=== PATIENT | male | born 1950 | race Caucasian/White ===

== ENCOUNTER 2018-04-05 09:53 | Outpatient (CLI) | payer MEDICARE ==
[2018-04-05] MEDS ORDERED: Gadobenate Dimeglumine 529 MG/1 ML (20ML VIAL) ONE (10:15)
--- NOTE | 2018-04-05 14:52 | MRI ---
MRI PELVIS WITH AND WITHOUT CONTRAST: INDICATIONS: History of prostate cancer. COMPARISON: None. CONTRAST: MultiHance 20 mL. TECHNIQUE: Multiplanar, multisequence MR images were obtained of the pelvis, with and without contrast, utilizin g prostate cancer specific protocol. The study was evaluated on a [employer] 3D work station for multiparametric evaluation. FINDINGS: The prostate is small, measuring 3.8 x 3.3 x 2.6 cm (volume 15.77 cc), with diffuse low T2 signal, web[place] [employer] for diffuse fibrosis of the prostate gland. There is an area of restricted diffusion seen w ithin the anterior central and left central fibromuscular stroma, measuring 2.8 x 1.6 cm, for a total volume of 3.94 mL, that demonstrates low T2 signal intensity and abnormal dynamic contrast enhanceme nt, suspicious for a malignancy. This lesion abuts the lower anterior aspect of the bladder base, wi thout evidence of definite invasion. No pathologically enlarged lymph nodes are evident. There are fat-containing bilateral inguinal hernias. There is a small right posterolateral bladder diverticulu m, measuring 3.7 mm. IMPRESSION: 1. PI-RADS category 5-Very high (clinically significant cancer is highly likely to be present). 2. There is a region of restricted diffusion, abnormal T2 signal intensity, and abnormal enhance ment involving the anterior central and left paracentral fibromuscular stroma, extending into the ana tral gland of the mid prostate, that is suspicious for malignancy. The lesion does abut the anterior margin of the bladder base, but without definite invasion. 3. No overt evidence to suggest malignant lymphadenopathy within the pelvis. 4. Fat-containing bilateral inguinal hernias. POS: [facility]
== END 2018-04-05 09:54 | disposition home or self-care (01) ==
LOC: TBSIIMAG 09:53
PROVIDERS: ATTEND Radiology Radiation Oncology
DX: C61 Malignant neoplasm of prostate (principal); K40.20 Bilateral inguinal hernia, without obstruction or gangrene, not specified as recurrent
CPT/HCPCS: 72197; 82565